=== PATIENT | female | born 1975 | race Caucasian/White ===

== ENCOUNTER 2019-02-13 00:53 | Outpatient (CLI) | payer OTHER, SELFPAY ==
--- NOTE | 2019-02-13 15:55 | DI.MAMMO_ITS ---
SYMPTOM/DIAGNOSIS: SCREENING, BASELINE, Z12.31 MAMMOGRAMS: Mammograms were interpreted according to the usual protocol including computer analysis with CAD system, tomosynthesis and C view imaging. This is a baseline examination. The breasts are composed of heterogeneously dense fibroglandular tissue, breast density, Category C. No suspicious masses or suspicious microcalcifications are seen. IMPRESSION: Category 1, negative mammogram. Yearly screening mammography is recommended. [facility] ASSESSMENT OF FINDINGS: Negative. Category 1. Patient will receive a letter notifying them of these results. Bi-RADS category C. The breasts are heterogeneously dense, which may obscure small masses.
== END 2019-02-13 01:13 ==
PROVIDERS: PCP Physician Assistant Medical; Visit Provider Nurse Practitioner Family
DX: Z12.31 Encounter for screening mammogram for malignant neoplasm of breast (principal)
CPT/HCPCS: 77063; 77067

== ENCOUNTER 2019-04-13 08:05 | Day surgery (SDC) | payer OTHER, SELFPAY ==
--- NOTE | 2019-04-13 06:48 | W.COLOREPORT ---
Date of service: 04/13/19 Time of Service: 10:01 Colonoscopy Report Date of procedure: 04/13/19 Pre-op diagnosis general: Colon Cancer Screening and Family History of colon Cancer Post-op diagnosis procedure note: other (Family Hx, diverticulosis, sigmoid polyp) Procedure: Colonoscopy with polypectomy with cold forceps Surgeon: Lacey Smith Anesthesia proc note operative: other (General/ ASA 2/ Ananda Henriquez, RADHA) Estimated blood loss (mL): 3 Pathology: other (sigmoid polyp) Complications: None Disposition: no change Indications: Mrs. Salmeron is a pleasant 43 year old female seen in the office for a screening colonoscopy. She has a family history of colon Cancer in her father at a young age. Risks, benefits and complications have been reviewed. Complications include but are not limited to bleeding, pain, perforation, missed small lesion/polyp, sore throat, aspiration and adverse reaction to the medications. Questions were entertained and answered to their satisfaction and they wished to proceed. No guarantees were given or implied. Prep: Miralax/Dulcolax Procedure Start Time: :01 Procedure End Time: 10: Retraction Time: 21 minutes Findings: One small <1 cm polyp in the distal sigmoid colon Moderate diverticulosis in the sigmoid colon Procedure Description: After informed consent was obtained the patient was taken to the procedure room and placed in a left decubitous position. Monitors were applied and a time out was done. The patients name, date of , procedure, allergies to medications and metal in their body was reviewed. The patient was then sedated. Once sedated and comfortable a rectal exam was done. External exam was normal. Internal exam revealed a normal sphincter tone and no palpable masses. The scope was then introduced and retro-flexed. No internal hemorrhoids, masses or polyps were identified. The scope was then advanced to the cecum without difficulty. The TI and appendiceal orifice were identified. The prep was good. The scope was then slowly retracted over 21 minutes back into the rectum. One Polyp was removed in the sigmoid colon with a cold forceps. The scope was removed and the patient was woken up and taken back to Same day surgery in stable condition. The patient tolerated the procedure well and there were no immediate complications. Follow up: The patient should follow up in 3-5 years unless they develop changes in bowel habits or other new gastrointestinal complaints.
--- NOTE | 2019-04-13 06:49 | W.PM.DSUDISC ---
Discharge Plan Disposition Patient Disposition: HOME Condition: Good Discharge Details Reason For Visit: colon Cancer Screening/ Family history Attending Provider: Lacey Smith Primary Care Provider: Blaze Diaz Home Meds and New Rx's Prescriptions: Continued multivitamin [Daily Multi-Vitamin] tablet 1 tab PO DAILY RF: 0 fluoxetine 20 mg tablet 20 mg PO DAILY Qty: 90 RF: 3 ranitidine HCl [Zantac] 150 mg tablet 150 mg PO QHS Qty: 30 RF: 0 Discontinued polyethylene glycol 3350 17 gram/dose powder 238 g PO ONCE Qty: 238 RF: 0 bisacodyl [Dulcolax (bisacodyl)] 5 mg tablet,delayed release (DR/EC) 5 mg PO ONCE Qty: 4 RF: 0 Discharge Instructions Instructions: Colonoscopy (DC), Diverticulosis (DC), Colorectal Polyps (DC) Additional Instructions: Findings: diverticulosis One polyp Follow up:3-5 years Please call if you develop: fevers >101.5 Nausea or Vomiting Abdominal pain that is not transient DAY SURGERY UNIT POST COLONOSCOPY INSTRUCTIONS 1. Because there will be medication in your system for the next 24 hours, you may feel a little sleepy. Your coordination will be affected. Therefore: a. Do not drive or operate dangerous equipment for 24 hours. b. Do not drink alcohol beverages for 24 hours (not even beer). c. Plan to go home and rest for the day. 2. Generally there are no restrictions on your activity after a day or so has gone by, but you may feel a bit fatigued for a few days. 3 After you arrive home you may have a light meal and return to a normal diet as you can tolerate it without feeling sick to your stomach. 4. After surgery, you may feel pain or discomfort. This should be only transient, but if it persists please contact your doctor. 5. If there are any questions regarding the findings of your procedure, please feel free to contact your doctor. 6. If you are unable to contact your doctor with a problem, contact the hospital at [phone]. 7. Continue all your regular medications unless directed otherwise. I understand the above instructions and have no questions. Signature of Patient or Responsible Adult Escort Date/Time Name of Responsible Adult Escort Signature of Nurse Date/Time Activity:: Activity as Tolerated Diet:: High Fiber Discharge Orders Discharge Orders: Discharge Order (Routine); Ordered 04/13/19 Ordered By: Lacey Smith DS: Diagnosis Discharge Diagnosis (1) S/P colonoscopy: Status: Acute (2) Diverticulosis: Status: Acute (3) Colorectal polyp detected on colonoscopy: Status: Acute (4) Family history of colon cancer: Status: Acute
[2019-04-13 08:24] VITALS: BP 144/60; PULSE 100; RESP 16; TEMP 37; O2SAT 98
[2019-04-13] MEDS: Lactated Ringers 1,000 ML 80 ML IV (08:50)
--- NOTE | 2019-04-13 10:25 | BOWEL_PTH ---
PATIENT: Zarina Salmeron LOC: [facility] U#:[id number] AGE/SX: 43/F ROOM: RE04/13/[address]: Lacey Smith MD : 1975 BED: DIS: 04/13/2019 SPEC #: [id number] RECD: 04/13/19 11:21 STATUS: IZA REQ #: [id number] GILMAR: 04/13/19 10:[address]: Lacey Smith DEPT: Surgical Specimen RECD BY: Chiqui Patiño ENTERED: 04/13/19 11:22 SP TYPE: Bowel OTHR DR: Blaze Diaz Tissues: 1 - BIOPSY BOWEL Procedures: GROSS AND MICRO LEVEL 4 Comments: [id number]
[2019-04-13 11:00] VITALS: BP 131/93; PULSE 96; RESP 16; TEMP 37.4; O2SAT 97
== END 2019-04-13 11:24 | disposition home or self-care (01) ==
LOC: SUR 08:05
PROVIDERS: PCP Physician Assistant Medical; Visit Provider Surgery
PROC: 0DJD8ZZ Inspection of Lower Intestinal Tract, Via Natural or Artificial Opening Endoscopic (ICD-10-PCS; CPT 45378; principal; 2019-04-13 09:00)
DX: Z12.11 Encounter for screening for malignant neoplasm of colon (principal); D12.5 Benign neoplasm of sigmoid colon; Z80.0 Family history of malignant neoplasm of digestive organs; K57.30 Diverticulosis of large intestine without perforation or abscess without bleeding
CPT/HCPCS: 45380; 88305

== ENCOUNTER 2022-06-06 15:21 | Outpatient (REF) | payer MEDICAID, SELFPAY ==
[2022-06-06 15:13] LABS: HCT 41.9 % (36.0-46.0); HGB 14.1 g/dL (11.2-15.7); MCH 30.8 pg (27.0-33.0); MCHC 33.7 % (32.0-36.0); MCV 92 fL (80-95); MPV 10.4 fL (8.0-11.0); Platelet Count 194 10^3/uL (130-400); RBC 4.58 10^6/uL (3.93-5.22); RDW 12.7 % (11.7-14.6); RDW-SD 42.4 fL; WBC 8.57 10^3/uL (4.4-10.8)
[2022-06-06 16:01] LABS: ALT 116 U/L (14-59); AST 51 U/L (15-37); Albumin 4.1 g/dL (3.4-5.0); Alkaline Phosphatase 103 U/L (46-116); Anion Gap 12.3 mmol/L (3-11); BUN 19 mg/dL (7-18); Bilirubin, Total 0.4 mg/dL (0.2-1.0); CO2 23.7 mmol/L (21.0-32.0); CREATININE 0.8 mg/dL (0.55-1.02); Calcium 9.3 mg/dL (8.5-10.1); Calculated LDL 151 mg/dL (<100); Chloride 105 mmol/L (98-107); Cholesterol 250 mg/dL (<200); Glucose 96 mg/dL (74-106); HDL Cholesterol 66 mg/dL (40-60); Potassium 4.2 mmol/L (3.5-5.1); Sodium 141 mmol/L (136-145); TSH (W/Ref FT4) 3.06 uIU/mL (0.36-3.74); Total Protein 7.6 g/dL (6.4-8.2); Triglyceride 168 mg/dL (<150)
[2022-06-07 09:02] LABS: Hepatitis C Ab w Rflx HCV PCR Negative (Negative)
== END 2022-06-06 15:22 | disposition home or self-care (01) ==
LOC: NCHCN 15:21
PROVIDERS: PCP Surgery; Visit Provider Registered Nurse
DX: R63.5 Abnormal weight gain (principal); Z11.59 Encounter for screening for other viral diseases; Z13.220 Encounter for screening for lipoid disorders; Z00.00 Encounter for general adult medical examination without abnormal findings; R79.89 Other specified abnormal findings of blood chemistry
CPT/HCPCS: 80053; 80061; 85027; 86803; 84443

== ENCOUNTER 2023-03-27 13:28 | Outpatient (REF) | payer MEDICAID, SELFPAY ==
[2023-03-27 15:24] LABS: ALT 90 U/L (14-59); AST 38 U/L (15-37); Albumin 4.1 g/dL (3.4-5.0); Alkaline Phosphatase 101 U/L (46-116); Anion Gap 7.8 mmol/L (3-11); BUN 14 mg/dL (7-18); Bilirubin, Total 0.3 mg/dL (0.2-1.0); CO2 28.2 mmol/L (21.0-32.0); CREATININE 0.9 mg/dL (0.55-1.02); Calcium 9.5 mg/dL (8.5-10.1); Chloride 106 mmol/L (98-107); Estimated GFR 80.34 (mL/min/1.73m2); Glucose 93 mg/dL (74-106); Potassium 3.8 mmol/L (3.5-5.1); Sodium 142 mmol/L (136-145); Total Protein 8.2 g/dL (6.4-8.2)
== END 2023-03-27 13:29 | disposition home or self-care (01) ==
LOC: NCHCN 13:28
PROVIDERS: PCP Surgery; Visit Provider Registered Nurse
DX: I10 Essential (primary) hypertension (principal); R74.8 Abnormal levels of other serum enzymes
CPT/HCPCS: 80053

== ENCOUNTER 2023-04-11 01:48 | Outpatient (CLI) | payer MEDICAID, SELFPAY ==
--- NOTE | 2023-04-11 11:00 | DI.MAMMO_ITS ---
Exam(s) MAMMO SCREENING EXAM: MAMMO SCREENING CLINICAL HISTORY: SCREENING, Z12.39 TECHNIQUE: Bilateral full field digital CC and MLO mammographic images were obtained with 3D tomosyn thesis and utilizing computer aided detection (CAD). COMPARISON: Available for comparison. FINDINGS: Masses/Architectural Distortion: None seen. Microcalcifications: No suspicious pleomorphic-type are seen. Skin Thickening/Nipple Retraction: None. IMPRESSION: 1. No significant interval change with no specific features of malignancy noted. 2. Unless there is more urgent need, screening mammography is recommended, as per [employer] guidelines. BI-RADS Category 1 - Negative Breast Density - Category C - Heterogeneously dense Breast density category C or D implies that the patient has dense breast tissue. Dense breast tissue is very common and is not abnormal but dense breast tissue can make it harder to find cancer on a ma mmogram. Also, dense breast tissue may increase their breast cancer risk. This information about the result of the mammogram report was provided to the patient to raise their awareness. Use this report when you speak with the patient about their risks for breast cancer, which includes their family hist ory. At that time, you may recommend for more screening tests (Ultrasound or MRI) as they might be us eful based on their risk. A negative radiographic report should not delay biopsy if a dominant or clinically suspicious mass is present. Up to ten percent of cancers are not identified on mammography. A negative report may reinforce clinical impression. Adenosis and dense breasts may obscure an underlying neoplasm. False positive reports average 6 to 10%. Patient will receive a letter notifying them of these results.
== END 2023-04-11 02:08 ==
LOC: DI 01:49
PROVIDERS: PCP Surgery; Visit Provider Registered Nurse
DX: Z12.31 Encounter for screening mammogram for malignant neoplasm of breast (principal)
CPT/HCPCS: 77063; 77067

== ENCOUNTER 2025-01-07 02:33 | Outpatient (CLI) | payer BC, SELFPAY ==
--- NOTE | 2025-01-07 08:45 | DI.MAMMO_ITS ---
Exam(s) MAMMO SCREENING EXAM: MAMMO SCREENING CLINICAL HISTORY: SCREENING, Z12.31. TECHNIQUE: Bilateral full field digital CC and MLO mammographic images were obtained with 3D tomosyn thesis and utilizing computer aided detection (CAD). COMPARISON: Prior mammograms were reviewed. FINDINGS: There are no significant radiograph findings in the right breast. In the posterior medial aspect of the left breast there is an area of asymmetric density measuring ap proximately 1.5 x 1.3 cm, located 13 cm in from the nipple on the CC view and slightly more prominent than on prior studies. There are 2 tiny microcalcifications in this region. Additional imaging rec ommended. There is no significant architectural distortion nor skin thickening-retraction. IMPRESSION: 1. No radiographic evidence of malignancy in the right breast. 2. Asymmetric 1.5 x 1.3 cm density posteriorly in left breast as described above. Additional imaging recommended including spot compression and ultrasound. BI-RADS Category 0 - Incomplete: Need additional imaging evaluation Breast Density - Category B - Scattered areas of fibroglandular density Breast density Category C or D implies that the patient has dense breast tissue. Dense breast tissue can make it harder to find cancer on a mammogram. Dense breast tissue is also associated with an incr eased risk of breast cancer. This information about the result of the mammogram report was provided to the patient to raise their awareness. Use this report when you speak with the patient about their risks for breast cancer, which includes their family history. At that time, you may recommend additional screening tests (Ultrasoun d or MRI) as these tests may add significant information. A negative radiographic report should not delay biopsy if a dominant or clinically suspicious mass is present. Up to ten percent of cancers are not identified on mammography. A negative report may reinforce clinical impression. Adenosis and dense breasts may obscure an underlying neoplasm. False positive reports average 6 to 10%. Patient will receive a letter notifying them of these results.
== END 2025-01-07 02:53 ==
PROVIDERS: PCP Family Medicine; Visit Provider Family Medicine
DX: Z12.31 Encounter for screening mammogram for malignant neoplasm of breast (principal); R92.323 Mammographic fibroglandular density, bilateral breasts
CPT/HCPCS: 77063; 77067

== ENCOUNTER 2025-01-14 00:41 | Outpatient (CLI) | payer BC, SELFPAY ==
--- NOTE | 2025-01-14 | DI.US_ITS ---
Exam(s) MG MAMMO SCREEN CALL BACK UNI US BREAST LT COMPLETE EXAM: MAMMO SCREEN CALL BACK UNI and U/S breast LT complete CLINICAL HISTORY: Asymmetric density, posterior medial left, 1.5x1.3 cm 13 cm from nipple. TECHNIQUE: Craniocaudal and mediolateral oblique Full Field Digital Mammography views of the left br east with Computer Aided Diagnosis followed by Tomosynthesis and complete left breast ultrasound. Al l 4 quadrants of the left breast were evaluated sonographically in addition to the retroareolar regio n in the left axilla. COMPARISON: Comparison is made with prior examinations. FINDINGS: Mammography/Tomosynthesis: Masses/Architectural Distortion: The asymmetric breast tissue in the medial left breast persists on t he craniocaudad view. No correlate is appreciated on the lateral view. The area seen posteriorly on the lateral view compresses. Microcalcifictions: No suspicious pleomorphic-type are seen. Skin Thickening/Nipple Retraction: None. Complete left breast US: Echotexture: There is an echogenic area at the 11 o'clock position of the left breast 12 cm from the nipple. It appears to be normal tissue. Shadowing: No suspicious foci. Cyst: None. Solid lesions: None seen. Ductal dilation: None. IMPRESSION: 1. Persistent asymmetry in the medial left breast on the craniocaudad view. No definite sonographic correlate is seen. 2. This area remains concerning and should be further evaluated with a MRI of the breast. 3. The findings were discussed with the patient on the date of the examination. Findings were discus sed with the primary care provider, Peri León on 01/14/2025. BI-RADS Category 0 - Incomplete: Need additional imaging evaluation Breast Density - Category C - Heterogeneously dense Breast density Category C or D implies that the patient has dense breast tissue. Dense breast tissue can make it harder to find cancer on a mammogram. Dense breast tissue is also associated with an incr eased risk of breast cancer. This information about the result of the mammogram report was provided to the patient to raise their awareness. Use this report when you speak with the patient about their risks for breast cancer, which includes their family history. At that time, you may recommend additional screening tests (Ultrasoun d or MRI) as these tests may add significant information. A negative radiographic report should not delay biopsy if a dominant or clinically suspicious mass is present. Up to ten percent of cancers are not identified on mammography. A negative report may reinforce clinical impression. Adenosis and dense breasts may obscure an underlying neoplasm. False positive reports average 6 to 10%. Patient will receive a letter notifying them of these results.
== END 2025-01-14 01:01 ==
LOC: DI 00:41
PROVIDERS: PCP Family Medicine; Visit Provider Family Medicine
DX: Z12.31 Encounter for screening mammogram for malignant neoplasm of breast (principal); R92.333 Mammographic heterogeneous density, bilateral breasts
CPT/HCPCS: 76642; 77063; 77067

== ENCOUNTER 2025-01-19 16:56 | Outpatient (REF) | payer BC, SELFPAY ==
[2025-01-19 21:30] LABS: Anion Gap 7.1 mmol/L (3-11); BUN 21 mg/dL (7-18); CO2 28.9 mmol/L (21.0-32.0); Calcium 9.9 mg/dL (8.5-10.1); Chloride 105 mmol/L (98-107); Estimated GFR 69.93 (mL/min/1.73m2); Glucose 85 mg/dL (74-106); Sodium 141 mmol/L (136-145); TSH (W/Ref FT4) 3.44 uIU/mL (0.36-3.74)
== END 2025-01-19 16:57 | disposition home or self-care (01) ==
LOC: NCHCN 16:56
PROVIDERS: PCP Family Medicine; Visit Provider Family Medicine
DX: I10 Essential (primary) hypertension (principal); R53.83 Other fatigue
CPT/HCPCS: 80048; 84443

== ENCOUNTER 2025-02-22 07:31 | Day surgery (SDC) | payer BC, SELFPAY ==
[2025-02-22 07:40] VITALS: BP 117/82; PULSE 85; RESP 22; TEMP 36.7; O2SAT 97
[2025-02-22] MEDS: Lactated Ringers 1,000 ML 80 ML IV (08:40)
--- NOTE | 2025-02-22 09:15 | W.ANESPRE ---
General Info Date of Service Date Performed: 02/22/25 Height: 5 ft 4 in Weight: 82.3 kg Body Mass Index (BMI): 31.1 Surgical Procedure: Operation Date: 02/22/25 09:20 Proposed Procedure Side Surgeon p Colonoscopy Rich Cisneros MD Meds Allergies and Home Medications Allergies Allergy/AdvReac Type Severity Reaction Status Date / Time No Known Drug Allergies Allergy none Verified 02/22/25 08:21 Home Medication ?Medication ?Instructions ?Recorded multivitamin (Daily Multi-Vitamin 1 tab PO DAILY 02/02/19 tablet) fluoxetine 20 mg capsule 20 mg PO DAILY #90 caps 09/20/20 olmesartan 20 mg tablet 20 mg PO DAILY 01/21/25 bisacodyl 5 mg tablet,delayed 5 mg PO ONCE colonscopy bowel prep 02/04/25 release (Dulcolax (bisacodyl)) #4 tabs polyethylene glycol 3350 17 238 g PO ONCE colonoscopy prep 02/04/25 gram/dose oral powder #238 grams Current Visit Medications: Current Medications Generic Name Dose Route Start Last Admin Trade Name Roryq PRN Reason Stop Dose Admin Ringer's Solution 1,000 mls @ 80 mls/hr 02/22/25 06:00 02/22/25 08:40 IV 02/22/25 23:59 80 mls/hr INFUSION SHERRIE Administration IV Miscellaneous Supplies 1 each 02/22/25 06:00 Iv Access IV 02/22/25 23:59 DIRECTED SHERRIE Sodium Chloride 0 ml 02/22/25 06:00 Normal Saline Flush 10 Ml Syr IV 02/22/25 23:59 PRN PRN Sodium Chloride 0 ml 02/22/25 06:00 Normal Saline 10 Ml Vial IJ 02/22/25 23:59 DIRECTED PRN Sterile Water 0 ml 02/22/25 06:00 Water,Injection,Sterile 10 Ml Vial IJ 02/22/25 23:59 DIRECTED PRN PFSH Active Problems Active Problems: Problem Status Onset Code Colorectal polyp detected on colonoscopy Acute ~04/13/19 K63.5 Diverticulosis Acute ~04/13/19 K57.90 Family history of colon cancer Acute Z80.0 Acquired absence of both cervix and uterus Acute 05/18/16 Z90.710 Depression Acute 02/18/15 F32.9 Migraine Acute 02/04/14 G43.909 Medical History Medical History Tubular adenoma (~2018) Major depression, single episode Essential hypertension Medical History Comments:: Wearing contacts; reports she does nap in them Surgical History Surgical History S/P colonoscopy (~04/13/19) Ligation of fallopian tube section X 1 Vaginal hysterectomy (~2001) LAVH for Endometriosis Tobacco Smoking/Tobacco Use Status: Former Tobacco Use Passive smoking exposure: No Alcohol Alcohol Intake: current Alcohol intake frequency: a few times a week Alcohol type: beer Substance Use Substance use: Never Substance use type: does not use Prental History History 3 Para 2 Hx # Term Pregnancies Multiple births Hx # Pregnancies Ectopic pregnancies AB induced Hx Number of Living Children AB spontaneous Vital Signs and Lab Results Vital Signs Most Recent Vital Signs in EMR: Most Recent Vital Signs Temp Pulse Resp BP Pulse Ox 36.7 C 85 22 117/82 97 02/22/25 07:40 02/22/25 07:40 02/22/25 07:40 02/22/25 07:40 02/22/25 07:40 Lab Results Blood Type / Crossmatch: No Data to Display Complete Blood Count: No Data to Display Complete Metabolic Panel: No Data to Display Liver Function Panel: No Data to Display Coagulation Panel: No Data to Display Cardiac Panel: No Data to Display Arterial Blood Gas: No Data to Display Venous Blood Gas: No Data to Display Pancreas Panel: No Data to Display Thyroid Panel: No Data to Display Infectious Disease: No Data to Display Blood Cultures: No Data to Display Toxicology Panel: No Data to Display Panel: No Data to Display Anesthesia Assessment and Plan Anesthesia History Personal History: No History of Anesthesia Complications Family History: No Family History of Anesthesia Complications Exercise Tolerance Exercise Tolerance: Metabolic Equivalents>4 Pertinent Negatives Pertinent Negatives: No Symptoms of GERD Cardiac & Pulmonary Exam Cardiac Exam: Normal S1/S2 Heart Sounds Pulmonary Exam: Clear Bilateral Breath Sounds Implantable Cardiac Device Does patient have a Pacemaker or an ICD?: No Airway Exam Known Difficult Airway: No Mallampati Class: 2 Mouth Opening: Normal (> 3cm) Thyromental Distance: Less than 3 cm Neck Range of Motion: Full ROM Neck Circumference: Normal Teeth Condition: Normal Dentition ASA Classification ASA Score: ASA 2 Emergency Case?: No NPO Status NPO Status: NPO Clears >2 hours, Solids >8 hours Status Status: History of Hysterectomy Anesthesia Plan Resuscitation Status: Full Code Anesthesia Technique: General Anesthesia Airway Planned: Natural Airway Monitors Used: Standard Monitors
[2025-02-22 09:16] VITALS: BMI 31.1
--- NOTE | 2025-02-22 09:17 | W.SURGCON ---
Date of service: 02/22/25 Time of Service: 09:17 Assessment and Plan Assessment and plan (1) Family history of colon cancer: Status: Acute Assessment and plan: 49-year-old asymptomatic woman with increased risk for colorectal cancer due for routine, surveillance. Overall plan: Colonoscopy History of Present Illness Narrative: 49-year-old woman has a personal history of adenomatous polyps and a family history of colon cancer in her father at a young age. She is not having any new symptoms of concern. She is due for surveillance colonoscopy because of the above?history. PFSH All Active Problems Colorectal polyp detected on colonoscopy (Acute ~04/13/19) Diverticulosis (Acute ~04/13/19) Family history of colon cancer (Acute) Father Dx at 62 - stage 4 Acquired absence of both cervix and uterus (Acute 05/18/16) LAVH and L oophrectomy for endometriosis 2001 Depression (Acute 02/18/15) Migraine (Acute 02/04/14) Medical History Tubular adenoma (~2018) Major depression, single episode Essential hypertension Surgical History S/P colonoscopy (~04/13/19) Ligation of fallopian tube section X 1 Vaginal hysterectomy (~2001) LAVH for Endometriosis Family History Father COPD (chronic obstructive pulmonary disease) Colon cancer Dx at 62 Stage 4 Grandfather Diabetes maternal Social History (Updated 03/20/19 @ 10:27 by KARO Sanchez) Smoking/Tobacco Use Status: Former Tobacco Use Quit Date: 11/25/03 Smoking risk assessment performed?: Yes Alcohol Intake: current Alcohol Intake frequency: a few times a week Alcohol type: beer Drug use: Never Substance use type: does not use Housing: house Additional Social history: [employer] Female Reproductive History Menstrual control method: permanent sterilization (Hyst 15+ yrs ago for endometriosis) History History 3 Para 2 Hx # Term Pregnancies Multiple births Hx # Pregnancies Ectopic pregnancies AB induced Hx Number of Living Children AB spontaneous Exam Narrative Exam Narrative: Gen: Non-toxic, comfortable and interactive Neuro: Alert and oriented x3 Psych: Good mood and affect. Good insight and understanding into condition. Chest: Non-labored breathing, no wheezing, no visible shortness of breath. Heart: Regular Results Last Vital Signs Temp 98.1 F 02/22/25 07:40 Pulse 85 02/22/25 07:40 Resp 22 02/22/25 07:40 BP 117/82 02/22/25 07:40 Pulse Ox 97 02/22/25 07:40
--- NOTE | 2025-02-22 09:21 | W.COLOREPORT ---
Date of service: 02/22/25 Time of Service: 09:21 Colonoscopy Report Procedure Description: PROCEDURES PERFORMED: 1. Colonoscopy with cold forceps polypectomy PREOPERATIVE DIAGNOSIS: Surveillance colonoscopy, colon polyps, family history of colon cancer POSTOPERATIVE DIAGNOSIS: Colon polyps, diverticulosis, internal and external hemorrhoids SURGEON: Hernandez Cisneros MD INDICATION for procedure: The patient is a 49-year-old woman with a family history of colon cancer in her father at a young age. She herself has had adenomatous polyps in the past. FINDINGS: Normal terminal ileum. In the descending colon is a 2-3 mm sessile polyp was removed with cold forceps technique. There are scattered diverticular changes in the sigmoid colon only. Grade 1 internal hemorrhoids and there is a moderate, isolated external hemorrhoid. SURVEILLANCE interval/FOLLOW-UP: Because of the history, I recommend repeating in 5 years SPECIMENS: yes EBL: Minimal COMPLICATIONS: None QUALITY of prep: Excellent Procedure in detail: The patient gave written consent and was in agreement with the indications, the potential risks as well as the benefits of the procedure. They were taken to the endoscopy suite and laid in the left lateral decubitus position. A timeout was performed and anesthesia was administered which was tolerated well. I started the procedure. Digital rectal and visual examination was performed and grossly within normal limits. A well-lubricated flexible colonoscope was then introduced and passed without any notable difficulty all the way to the cecum identified by the ileocecal valve and the appendiceal orifice. The terminal ileum was intubated and looked normal. The scope was then slowly withdrawn with the above-noted findings. The patient tolerated the procedure well and was taken to the PACU in hemodynamically stable condition.
--- NOTE | 2025-02-22 09:22 | W.PM.DSUDISC ---
Date of service: 02/22/25 Discharge Plan Disposition Patient Disposition: Home Condition: Good Discharge Details Attending Provider: Rich Cisneros Primary Care Provider: Peri León Home Meds and New Rx's Prescriptions: No Action multivitamin [Daily Multi-Vitamin] tablet 1 tab PO DAILY polyethylene glycol 3350 17 gram/dose powder 238 g PO ONCE Qty: 238 0RF Rx Instructions: take per colonoscopy instructions bisacodyl [Dulcolax (bisacodyl)] 5 mg tablet,delayed release (DR/EC) 5 mg PO ONCE Qty: 4 0RF Rx Instructions: take per colonoscopy instructions fluoxetine 20 mg capsule 20 mg PO DAILY Qty: 90 3RF olmesartan 20 mg tablet 20 mg PO DAILY Discharge Instructions Additional Instructions: FINDINGS: A small polyp was again found and removed today. It is nothing to worry about. Because of your family history I recommend repeating another colonoscopy in 5 years. Diverticular disease and hemorrhoid disease is very common, benign and nothing needs to be done about them. Activity:: Activity as Tolerated Diet:: As Tolerated Discharge Orders Discharge Orders: Discharge Order (Routine); Ordered 02/22/25 Ordered By: Rich Cisneros DS: Diagnosis Discharge Diagnosis (1) Family history of colon cancer: Status: Acute
--- NOTE | 2025-02-22 09:46 | BOWEL_PTH ---
PATIENT: Zarina Salmeron LOC: [facility] U#:[id number] AGE/SX: 49/F ROOM: RE02/22/[address]: Rich Cisneros : 1975 BED: DIS: 02/22/2025 SPEC #: [id number] RECD: 02/22/25 13:07 STATUS: IZA RE #: [id number] GILMAR: 02/22/25 09:[address]: Rich Cisneros DEPT: Surgical Specimen RECD BY: Corinne Mtz Tissues: 1 - BIOPSY BOWEL Procedures: GROSS AND MICRO LEVEL 4 Comments: [id number]
[2025-02-22 10:14] VITALS: BP 115/73; PULSE 76; RESP 16; TEMP 36.3; O2SAT 96
--- NOTE | 2025-02-22 10:33 | W.ANESPOSTOP ---
Postoperative Evaluation Date, Time and Location Date Performed: 02/22/25 Time Performed: 10:33 Patient Location: Day Surgery Unit Vital Signs Most Recent Imported Vital Signs: Most Recent Vital Signs Temp Pulse Resp BP Pulse Ox 36.3 C L 76 16 115/73 96 02/22/25 10:14 02/22/25 10:14 02/22/25 10:14 02/22/25 10:14 02/22/25 10:14 Pain Score Most Recent Pain Score: Most Recent Pain Score Pain Level 0 02/22/25 10:14 Assessment Mental Status: Awake (Alert & Oriented to Patient Baseline) Airway and Respiratory Function: Patent airway with normal (patient baseline) respiratory exam Cardiovascular Function: Hemodynamically Stable Hydration Status: Adequately Hydrated Nausea & Vomiting: No Nausea or Vomiting Pain: Pt. Denies Any Pain Peripheral Nerve Block: Patient did not receive a nerve block
[2025-02-22 10:35] VITALS: BP 130/78; PULSE 87; RESP 18; TEMP 36.3; O2SAT 100
== END 2025-02-22 10:40 | disposition home or self-care (01) ==
PROVIDERS: PCP Family Medicine; Visit Provider Student in an Organized Health Care Education/Training Program
PROC: 0DJD8ZZ Inspection of Lower Intestinal Tract, Via Natural or Artificial Opening Endoscopic (ICD-10-PCS; CPT 45378; principal; 2025-02-22 09:15)
DX: Z80.0 Family history of malignant neoplasm of digestive organs (principal); Z12.11 Encounter for screening for malignant neoplasm of colon; K57.30 Diverticulosis of large intestine without perforation or abscess without bleeding; K63.5 Polyp of colon; K64.4 Residual hemorrhoidal skin tags; D12.4 Benign neoplasm of descending colon; K64.0 First degree hemorrhoids
CPT/HCPCS: 45380; 88305; J2704

== ENCOUNTER 2025-11-04 08:10 | Outpatient (REF) | payer BC, SELFPAY ==
[2025-11-04 15:20] LABS: ALT 79 U/L (10-49); AST 45 U/L (<34); Albumin 4.7 g/dL (3.2-5.0); Alkaline Phosphatase 90 U/L (46-116); Anion Gap 8.3 mmol/L (3-11); BUN 18 mg/dL (9-23); Bilirubin, Total 0.5 mg/dL (0.2-1.2); CO2 26.7 mmol/L (20.0-31.0); Calcium 9.8 mg/dL (8.3-10.6); Chloride 107 mmol/L (98-107); Cholesterol 241 mg/dL (<200); Glucose 100 mg/dL (74-106); HDL Cholesterol 68 mg/dL (>40); Potassium 4.0 mmol/L (3.5-5.1); Sodium 142 mmol/L (136-145); Total Protein 8.0 g/dL (5.7-8.2)
[2025-11-04 15:23] LABS: TSH (W/Ref FT4) 2.96 uIU/mL (0.55-4.78)
== END 2025-11-04 08:11 | disposition home or self-care (01) ==
LOC: NCHCN 08:10
PROVIDERS: PCP Family Medicine; Visit Provider Family Medicine
DX: Z00.00 Encounter for general adult medical examination without abnormal findings (principal); Z13.29 Encounter for screening for other suspected endocrine disorder; Z13.220 Encounter for screening for lipoid disorders
CPT/HCPCS: 80053; 80061; 84443